=== PATIENT | male | born 1935 | race Caucasian/White ===

== ENCOUNTER 2017-03-03 22:26 | Emergency (ER) | payer MEDICARE, BC ==
[~2017-03-03] VITALS: Ht 182.9 cm; Wt 70.5 kg
[~2017-03-03 22:26] MED LIST: ASPIRIN 32325 MG/TAB PO; BUDEPRION XL300 MG PO; CIALIS; FISH OIL CONC1000 MG PO; FISH OIL1000 MG PO; LOPRESSOR 550 MG/TAB PO; LUMIGAN 2.5 ML2.5 M1 OP; MOTRIN 200200 MG/TAB PO; MOTRIN SUSP20 MG/ML PO; NIACIN PO; NIASPAN 500MG500 MG PO; NIASPAN500 MG PO; NITROSTAT0.4 MG/TAB SL; PEPCID 20MG TAB20 MG PO; TRAZODO50 MG PO; WELLBUTRIN PO; WELLBUTRIN XL300 MG PO
[2017-03-03 22:36] VITALS: TEMP 97.5
[2017-03-03] MEDS ORDERED: NIASPAN1000 MG PO (22:52)
[2017-03-03] MEDS ORDERED: PRILOSEC 20MG20 MG PO (22:52)
[2017-03-03] MEDS ORDERED: WELLBUTRIN XL300 M1 PO (22:52)
[2017-03-03] MEDS ORDERED: ARICEPT10 MG PO (22:52)
[2017-03-03] MEDS ORDERED: NAMENDA XR 28MG PO (22:52)
[2017-03-03 23:05] LABS: BASO % 0.2 % (0.0-2.0); EOS # 0.1 (0.0-0.7); EOS % 2.5 % (0-4.0); GRAN # 3.1 (1.4-6.5); GRAN % 58.2 % (42.2-75.2); HEMATOCRIT 38.8 % (42.0-52.0); LYMPH # 1.6 (1.2-3.4); LYMPH % 30.2 % (20.0-51.0); MEAN CELL VOLUME 95 fl (80.0-100.0); MEAN CORPUSCULAR HEMOGLOBIN 32 pg (27.0-31.0); MEAN CORPUSCULAR HGB CONC 34 g/dl (33.0-37.0); MEAN PLATELET VOLUME 10.6 fl (7.4-10.4); MONO # 0.5 (0.1-0.6); MONO % 8.9 % (1.7-9.3); PLATELET COUNT 166 K/mm3 (130-400); RED BLOOD COUNT 4.08 M/mm3 (4.20-5.60); WHITE BLOOD COUNT 5.3 K/mm3 (4.8-10.8)
[2017-03-03 23:14] LABS: ADJUSTED CALCIUM 8.7 mg/dL (8.4-10.2); ALANINE AMINOTRANSFERASE 43 U/L (21-72); ALKALINE PHOSPHATASE 66 U/L (50-136); ANION GAP 11 mmol/L (7-16); BILIRUBIN,TOTAL 0.6 mg/dL (0.0-1.0); BLOOD UREA NITROGEN 25 mg/dL (9-20); CALCIUM 8.7 mg/dL (8.4-10.2); CARBON DIOXIDE 25 mmol/L (22-30); CHLORIDE 103 mmol/L (98-107); CREATININE, serum 0.87 mg/dL (0.66-1.25); GLUCOSE 85 mg/dL (74-106); LIPASE 157 U/L (23-300); POTASSIUM 3.9 mmol/L (3.4-5.0); SODIUM 139 mmol/L (137-145); TOTAL PROTEIN 6.4 gm/dL (6.4-8.2)
[2017-03-03 23:25] LABS: B-TYPE NATRIURETIC PEPTIDE 197 pg/mL (0-450); TROPONIN-I < 0.012 ng/mL (0.000-0.034)
[2017-03-04] MEDS ORDERED: ASPIRIN E.C. 8181 MG PO (00:32)
[2017-03-04 01:30] VITALS: BP 135/80; PULSE 58
== END 2017-03-04 01:50 | disposition home or self-care (01) ==
LOC: COL.ER 22:26
PROVIDERS: Emergency Medicine
DX: R07.9 Chest pain, unspecified (principal); I25.10 Atherosclerotic heart disease of native coronary artery without angina pectoris; F41.9 Anxiety disorder, unspecified; F32.9 Major depressive disorder, single episode, unspecified

== ENCOUNTER 2017-09-16 08:34 | Emergency (ER) | payer MEDICARE, BC ==
[~2017-09-16] VITALS: Ht 182.9 cm; Wt 65.9 kg
[~2017-09-16 08:34] MED LIST changes: +ARICEPT10 MG PO; +ASPIRIN E.C. 8181 MG PO; +NAMENDA XR 28MG PO; +NIASPAN1000 MG PO; +PRILOSEC 20MG20 MG PO; +WELLBUTRIN XL300 M1 PO
[2017-09-16 08:36] VITALS: BP 144/82; TEMP 98.3
[2017-09-16 09:10] LABS: COLLECTION METHOD CLEAN CATCH
[2017-09-16 09:20] LABS: MUCOUS Present /lpf; PH 5 (5-8); SQUAMOUS EPITHELIAL None Seen /hpf; URINE APPEARANCE Clear; URINE BACTERIA None Seen /hpf; URINE BILIRUBIN Negative (NEGATIVE); URINE BLOOD Negative (NEGATIVE); URINE COLOR Yellow; URINE GLUCOSE Negative (NEGATIVE); URINE KETONE 2+ (NEGATIVE); URINE LEUKOCYTE ESTERASE Negative (NEGATIVE); URINE PROTEIN(semi-quant) Negative (NEGATIVE); URINE RBC 0-2 /hpf; URINE UROBILINOGEN Negative (NEGATIVE)
[2017-09-16 10:26] LABS: BASO % 0.3 % (0.0-2.0); EOS % 0.6 % (0-4.0); GRAN # 5.1 (1.4-6.5); GRAN % 78.6 % (42.2-75.2); HEMATOCRIT 42.3 % (42.0-52.0); HEMOGLOBIN 14.4 g/dl (13.5-18.0); LYMPH % 15.4 % (20.0-51.0); MEAN CELL VOLUME 95 fl (80.0-100.0); MEAN CORPUSCULAR HEMOGLOBIN 32 pg (27.0-31.0); MEAN CORPUSCULAR HGB CONC 34 g/dl (33.0-37.0); MEAN PLATELET VOLUME 10.1 fl (7.4-10.4); MONO # 0.3 (0.1-0.6); MONO % 4.8 % (1.7-9.3); PLATELET COUNT 163 K/mm3 (130-400); RED BLOOD COUNT 4.46 M/mm3 (4.20-5.60); WHITE BLOOD COUNT 6.5 K/mm3 (4.8-10.8)
[2017-09-16 10:37] LABS: ADJUSTED CALCIUM 9.1 mg/dL (8.4-10.2); ALANINE AMINOTRANSFERASE 28 U/L (21-72); ALBUMIN 4.1 gm/dL (3.5-5.0); ALKALINE PHOSPHATASE 62 U/L (50-136); ANION GAP 11 mmol/L (7-16); BLOOD UREA NITROGEN 13 mg/dL (9-20); CALCIUM 9.2 mg/dL (8.4-10.2); CARBON DIOXIDE 24 mmol/L (22-30); CHLORIDE 101 mmol/L (98-107); CREATININE, serum 0.83 mg/dL (0.66-1.25); GLUCOSE 107 mg/dL (74-106); LIPASE 67 U/L (23-300); POTASSIUM 4.3 mmol/L (3.4-5.0); SODIUM 136 mmol/L (137-145); TOTAL PROTEIN 6.6 gm/dL (6.4-8.2)
[2017-09-16 10:39] LABS: C-REACTIVE PROTEIN < 0.5 mg/dL (0.0-0.9)
[2017-09-16 10:47] LABS: TROPONIN-I < 0.012 ng/mL (0.000-0.034)
[2017-09-16] MEDS ORDERED: PROMETHAZINE12.5 M5 PO (11:02)
[2017-09-16] MEDS ORDERED: CELEBREX 200MG200 MG PO (11:39)
[2017-09-16 11:40] VITALS: PULSE 68
== END 2017-09-16 11:45 | disposition home or self-care (01) ==
LOC: COL.ER 08:34
PROVIDERS: Physician Assistant
DX: R11.0 Nausea (principal)
CPT/HCPCS: J2405; J7040